=== PATIENT | female | born 1995 | race Caucasian/White ===

== ENCOUNTER 2021-03-21 13:43 | Emergency (ER) | payer OTHER, SELFPAY ==
[2021-03-21 13:56] VITALS: BP 123/66; PULSE 62; RESP 18; TEMP 36.6; O2SAT 99; BMI 39.4
[2021-03-21] MEDS: Acetaminophen 325 MG TABLET 650 MG PO (14:03)
--- NOTE | 2021-03-21 14:54 | ED_ITS ---
Review of Systems Review of Systems: Constitutional : No Fever, No Chills, Cardiovascular : No Chest Pain, No SOB Respiratory : No Dyspnea Gastrointestinal : No abdominal pain Musculoskeletal : No Joint Swelling Skin : positive skin gaxiola, No skin laceration, No Foreign bodies, No rash, No surrounding erythema Neuro : No Weakness, No Numbness/tingling Psych : No SI/HI/thoughts of self injury Yes all other systems are reviewed and are negative [facility] Past Medical History Attestation statement: The following information was validated with the patient. Social History Social History Advance Directives: No Advance Directives Information Provided: Yes Patient : No Physical Exam Vital Signs: Vital Signs: Last Vital Signs Temp 97.9 F 03/21/21 13:56 Pulse 62 03/21/21 13:56 Resp 18 03/21/21 13:56 BP 123/66 03/21/21 13:56 Pulse Ox 99 03/21/21 13:56 BMI result Body Mass Index 39.4 vital signs have been reviewed as normal and appeared to be correct. Blood pressure normal Heart rate normal. Respiration rate normal. Temperature normal. Oxygen saturation normal. Appearance: Alert. Oriented X3. No acute distress. Head: Normal external exam. Normocephalic. Atraumatic. Eyes: PERRLA. EOMI. Conjunctiva and sclera normal. Eyelids normal. ENT: Pharynx normal. Uvula midline. Moist mucous membranes. Neck: Normal inspection. Neck supple. FROM. CVS: Normal heart rate and rhythm. Respiratory: No respiratory distress. Painless inspiration. Skin: Skin warm and dry. Normal skin color. Normal skin turgor. to left forearm The mid to distal aspect patient has 1st degree burn no foreign bodies are noted. Noncircumferential. No rashes/lesions/lacerations noted. Extremities: patient with tenderness palpation to left forearm otherwise no obvious ligamentous or tendon injury is noted. Otherwise all other Extremities exhibit normal range of motion and nontender. Neuro: Oriented X 3. No motor deficit. No sensory deficit. Reflexes normal. Normal steady gait. No focal neuro deficits noted. Vascular: + radial pulses/+ 2 distal pedal pulses/+2 dorsalis pedis b/l. Normal cap refill. No cyanosis noted to upper extremity nails and lower extremity toes nails. Course Course Course Narrative: 25-year-old female presenting to the ED with a work related injury with a burn to her left forearm after boiling pecan pie filling fell on her forearm prior to arrival. She reports that she is not up-to-date on tetanus. She denies any other injuries complaints or concerns at this time. On exam she has a 1st degree burn to left forearm at the mid to distal aspect non circumferential. Will place Silvadene a wet dressing and treat symptomatically instructions to follow-up with the [facility] and her PCP. Along with work connection. Patient understands agrees with this plan. MDM - Burn/Smoke Inhalation Medical Records Attestation: I reviewed the patient's medical records. Discharge Plan Discharge Clinical Impression: First degree burn injury, Work related injury Patient Disposition: Home, Self-Care Instructions: Superficial Burn (ED) Prescriptions: New cephalexin 500 mg capsule 500 mg PO Q6H 10 Days Qty: 40 RF: 0 oxycodone 5 mg tablet 5 mg PO Q6H PRN (Reason: pain) Qty: 14 RF: 0 ibuprofen 800 mg tablet 800 mg PO Q8H PRN (Reason: pain) Qty: 14 RF: 0 silver sulfadiazine 1 % cream 1 appl topical BID PRN (Reason: gaxiola) Qty: 400 RF: 0 Referrals: [facility] [Provider Group] - 2 days Odette Tompkins PA [Physician Research Environmental Scientist] - 2 days Eulalia Cassidy PA [Primary Care Provider] - 2 days Stand Alone Forms: Work/School Release Print Language: Vincentian HPI - Burn/Smoke Inhalation General Chief complaint: Burn/Smoke Inhalation Stated complaint: L Arm Burn Work Injury Time Seen by Provider: 03/21/21 14:52 Source: patient and family Mode of arrival: ambulatory Limitations: no limitations History of Present Illness MD Complaint: burn Onset (ago): minute(s) ( prior to arrival) Type of Exposure: hot liquid (pecan pie filling) Smoke Inhalation: none Place: unknown ( work) Location - Extremities: left: forearm Severity: moderate Severity scale (1-10): 10 Associated symptoms: denies other symptoms Treatment Prior to Arrival: other ( Silvadene and wet dressing) Related Data Previous Rx's Medication Instructions Recorded cephalexin 500 mg capsule 500 mg PO Q6H 10 Days #40 cap 03/21/21 ibuprofen 800 mg tablet 800 mg PO Q8H PRN #14 tab 03/21/21 oxycodone 5 mg tablet 5 mg PO Q6H PRN #14 tab 03/21/21 silver sulfadiazine 1 % topical 1 appl TOPICAL BID PRN #400 g 03/21/21 cream Allergies Allergy/AdvReac Type Severity Reaction Status Date / Time aloe vera Allergy Unknown Verified 03/21/21 13:56 aspirin Allergy Unknown Verified 03/21/21 13:56
[2021-03-21] MEDS: Ibuprofen 800 MG TABLET PO (15:02)
[2021-03-21] MEDS: oxyCODONE HCl Immed Release 5 MG TABLET PO (15:03)
[2021-03-21] MEDS: Silver Sulfadiazine 1 % Cream 20 GM TUBE 1 APPL TOPICAL (15:03)
[2021-03-21] MEDS: cephALEXin 500 MG CAPSULE PO (15:03)
[2021-03-21] MEDS: Diphth,Pertus(ACell),Tet Adult 0.5 ML SYRINGE IM (15:04)
== END 2021-03-21 15:44 | disposition home or self-care (01) ==
PROVIDERS: Emergency Provider Emergency Medicine; PCP Physician Assistant
DX: T22.112A Burn of first degree of left forearm, initial encounter (principal); X12.XXXA Contact with other hot fluids, initial encounter; Y93.G3 Activity, cooking and baking; Y92.511 Restaurant or cafe as the place of occurrence of the external cause; Y99.0 Civilian activity done for income or pay
CPT/HCPCS: 16000; 90471; 90715; 99284

== ENCOUNTER 2021-03-30 09:04 | Outpatient (RCR) | payer OTHER, SELFPAY | END 2021-04-01 15:22 | disposition home or self-care (01) | LOC: HO.WCC 09:04 | PROVIDERS: Visit Provider Physician Assistant | DX: Z09 Encounter for follow-up examination after completed treatment for conditions other than malignant neoplasm (principal); Z87.2 Personal history of diseases of the skin and subcutaneous tissue | CPT/HCPCS: 99213 ==